=== PATIENT | female | born 1995 | race Hispanic/Latino ===

== ENCOUNTER 2021-10-10 22:00 | Outpatient (CLI) | payer OTHER ==
[~2021-10-10] VITALS: Ht 170.2 cm; Wt 84.0 kg
[2021-10-10 22:12] VITALS: BP 109/69
[2021-10-10] MEDS ORDERED: CALC500C16 PO (22:16)
[2021-10-10] MEDS ORDERED: PRENTAB9 PO (22:16)
== END 2021-10-10 22:57 | disposition home or self-care (01) ==
LOC: M LDO 22:00
PROVIDERS: ATTEND Obstetrics & Gynecology
DX: O47.1 False labor at or after 37 completed weeks of gestation (principal); Z3A.37 37 weeks gestation of pregnancy
CPT/HCPCS: 59025; G0463

== ENCOUNTER 2021-11-03 16:15 | Inpatient (IN) | payer OTHER ==
[2021-11-03] VITALS (8 sets, daily range): BP systolic 98–135; BP diastolic 56–72
[~2021-11-03 16:15] MED LIST: CALC500C16 PO; PRENTAB9 PO
[2021-11-03] MEDS ORDERED: OXYTOCIN DRIP 30 UNITS in IV 1 EA IV SCH (17:35)
[2021-11-03] MEDS ORDERED: OXYTOCIN DRIP 30 UNITS in IV 1 EA IV PRN ×4 (17:35)
[2021-11-03] MEDS ORDERED: LIDOCAINE 1% MDV 20ML VIAL INFIL PRN (17:35)
[2021-11-03] MEDS ORDERED: METHYLERGONOVINE MALEATE 0.2 MG/ML VIAL (J2210) IM PRN (17:35)
[2021-11-03] MEDS ORDERED: TRANEXAMIC ACID INJection 1,000 MG in NS 100 ML IV PRN (17:35)
[2021-11-03 17:56] LABS: HEMATOCRIT 34.7 % (36.0-47.0); HEMOGLOBIN 11.4 g/dl (12.0-15.5); MEAN CORPUSCULAR HGB CONC 32.9 g/dl (32.0-36.5); MEAN CORPUSCULAR VOLUME 88.3 fl (80.0-96.0); PLATELET COUNT, AUTOMATED 285 10^3/uL (150-450); RED BLOOD COUNT 3.93 10^6/uL (4.00-5.40)
[2021-11-03] MEDS: LR 1,000 ML IV SCH ×2 (19:44→22:09)
[2021-11-04] VITALS (23 sets, daily range): BP systolic 100–129; BP diastolic 54–70
[2021-11-04] MEDS ORDERED: FENTANYL 2MCG/ML ROPIVACAINE 0.2% IN 0.9% NACL 100ML IVBAG As Ordered ONE (00:40)
[2021-11-04] MEDS ORDERED: LR 500 ML IV PRN (00:55)
[2021-11-04] MEDS ORDERED: EPIDURAL/PCA KEYS XX PRN (00:55)
[2021-11-04] MEDS ORDERED: ONDANSETRON 4MG 2ML VIAL IV PRN (00:55)
[2021-11-04] MEDS ORDERED: NALOXONE INJ 0.4MG/1ML VIAL (J2310 PER 1MG) IV PRN (00:55)
[2021-11-04] MEDS ORDERED: diphenhydrAMINE 50MG/ML VIAL (J1200) IV PRN (00:55)
[2021-11-04] MEDS: FENTANYL/ROPIVACAINE/NACL BAG 100 ML EPIDURAL SCH ×2 (01:20→09:52)
[2021-11-04] MEDS: ePHEDrine SULFATE 25 MG/5 ML(5MG/ML) SYRINGE IVP PRN ×3 (02:32→04:34)
[2021-11-04] MEDS: LR 1,000 ML IV SCH ×2 (05:57→11:59)
[2021-11-04] MEDS ORDERED: OXYTOCIN INJ 10 UNITS/ML VIAL (J2590) As Ordered ONE (12:19)
[2021-11-04] MEDS ORDERED: ANUSOL HC CREAM 30GM TOP PRN (14:05)
[2021-11-04] MEDS ORDERED: OXYTOCIN INJ 10 UNITS/ML VIAL (J2590) IV ONE ×2 (14:05)
[2021-11-04] MEDS ORDERED: LR 1,000 ML IV SCH (14:05)
[2021-11-04] MEDS ORDERED: METHYLERGONOVINE MALEATE 0.2 MG TAB PO PRN (14:05)
[2021-11-04] MEDS ORDERED: MOM 30ML SUSPENSION UDC PO PRN (14:05)
[2021-11-04] MEDS ORDERED: ACETAMINOPHEN TAB 650MG DOSE (2X325MG) PO PRN (14:05)
[2021-11-04] MEDS ORDERED: DIBUCAINE 1% OINTMENT 30GM TOP PRN (14:05)
[2021-11-04] MEDS ORDERED: OXYTOCIN DRIP 30 UNITS in IV 1 EA IV SCH ×4 (14:05)
[2021-11-04] MEDS ORDERED: RHOGAM 300 MCG (1500 IU) INJ (J2790) IM SCH (14:05)
[2021-11-04] MEDS ORDERED: METHYLERGONOVINE MALEATE 0.2 MG/ML VIAL (J2210) IM PRN (14:05)
[2021-11-04 14:15] LABS: CORD GAS ABE V -6.2; CORD GAS HCO3 V 20.1 MEQ/L; CORD GAS O2 SAT V 43.3 %; CORD GAS PCO2 V 42.5 mmHg; CORD GAS PH V 7.293 UNITS; CORD GAS PO2 V 20.4 mmHg; CORD GAS SBC V 18.2 MEQ/L; CORD GAS TCO2 V 21.4 MEQ/L
[2021-11-04 14:17] LABS: CORD GAS ABE A -8.2; CORD GAS PCO2 A 50.7 mmHg; CORD GAS PH A 7.213 UNITS; CORD GAS TCO2 A 21.5 MEQ/L
[2021-11-04 14:18] LABS: CORD GAS PO2 A < 10.0 mmHg
[2021-11-04] MEDS ORDERED: SLF 3 ML SYR IV PRN (15:30)
[2021-11-04] MEDS: ACETAMINOPHEN 500 MG TAB PO PRN (16:59)
[2021-11-04] MEDS: DOCUSATE SODIUM 100MG CAPSULE PO PRN (16:59)
[2021-11-04] MEDS: IBUPROFEN 600MG TAB PO PRN (22:00)
[2021-11-04] MEDS ORDERED: SLF 3 ML SYR IV SCH (22:00)
[2021-11-05 06:00] VITALS: BP 116/66
[2021-11-05] MEDS: PRENATAL VITAMINS CHEWABLE TABLET PO SCH ×2 (07:56→09:00)
[2021-11-05] MEDS: IBUPROFEN 600MG TAB PO PRN (07:56)
[2021-11-05 10:02] LABS: HEMATOCRIT 32.7 % (36.0-47.0); HEMOGLOBIN 10.6 g/dl (12.0-15.5); MEAN CORPUSCULAR HGB CONC 32.4 g/dl (32.0-36.5); MEAN CORPUSCULAR VOLUME 89.6 fl (80.0-96.0); PLATELET COUNT, AUTOMATED 252 10^3/uL (150-450); RED BLOOD COUNT 3.65 10^6/uL (4.00-5.40)
[2021-11-05 18:00] VITALS: BP 107/57
[2021-11-05] MEDS: DOCUSATE SODIUM 100MG CAPSULE PO PRN (20:04)
[2021-11-05] MEDS: ACETAMINOPHEN 500 MG TAB PO PRN (20:05)
[2021-11-06 06:00] VITALS: BP 115/56
[2021-11-06] MEDS ORDERED: ACET-683 PO (06:24)
[2021-11-06] MEDS ORDERED: COLA100C5 PO (06:24)
[2021-11-06] MEDS ORDERED: IBUP-1022 PO (06:24)
[2021-11-06] MEDS: PRENATAL VITAMINS CHEWABLE TABLET PO SCH (08:18)
[2021-11-06] MEDS ORDERED: MEASLES,MUMPS,RUBELLA VACCINE INJ (MMR-II) (90707) SC.IMMUN ONE (09:00)
== END 2021-11-06 15:30 | disposition home or self-care (01) | DRG 807 ==
LOC: M LDO 16:15 → M LDI 17:26 → M OBS 11-04 16:05
PROVIDERS: ADMIT Obstetrics & Gynecology; ATTEND Obstetrics & Gynecology
PROC: 10E0XZZ Delivery of Products of Conception, External Approach (ICD-10-PCS; principal; 2021-11-04)
DX: O42.02 Full-term premature rupture of membranes, onset of labor within 24 hours of rupture (principal); Z37.0 Single live birth; Z3A.40 40 weeks gestation of pregnancy

== ENCOUNTER → 2022-12-08 | Outpatient (CLI) | payer OTHER ==
[~2022-12-08] MED LIST changes: +ACET-683 PO; +COLA100C5 PO; +IBUP-1022 PO
== END ==
LOC: M WHC 13:17
PROVIDERS: ATTEND Advanced Practice Midwife
DX: Z36.89 Encounter for other specified antenatal screening (principal)

== ENCOUNTER 2023-03-07 23:16 | Inpatient (IN) | payer OTHER ==
[~2023-03-07] VITALS: Ht 170.2 cm; Wt 86.7 kg
[2023-03-07] MEDS ORDERED: HOME MED LIST COMPLETE! XX SCH (23:40)
[2023-03-08] VITALS (33 sets, daily range): BP systolic 92–151; BP diastolic 50–79
[2023-03-08] MEDS ORDERED: OXYTOCIN DRIP 30 UNITS in IV 1 EA IV PRN ×4 (00:35)
[2023-03-08] MEDS ORDERED: METHYLERGONOVINE MALEATE 0.2MG/ML 1ML VIAL IM PRN (00:35)
[2023-03-08] MEDS ORDERED: LIDOCAINE 1% MDV 20ML VIAL INFIL PRN (00:35)
[2023-03-08] MEDS ORDERED: TRANEXAMIC ACID INJection 1,000 MG in NS 100 ML IV PRN (00:35)
[2023-03-08] MEDS ORDERED: CARBOPROST TROMETHAMINE 250 MCG/ML AMP IM PRN (00:35)
[2023-03-08 00:58] LABS: HEMATOCRIT 36.5 % (36.0-47.0); HEMOGLOBIN 12.2 g/dl (12.0-15.5); MEAN CORPUSCULAR HEMOGLOBIN 29.4 pg (27.0-33.0); MEAN CORPUSCULAR HGB CONC 33.4 g/dl (32.0-36.5); PLATELET COUNT, AUTOMATED 269 10^3/uL (150-450); RED BLOOD COUNT 4.15 10^6/uL (4.00-5.40); WHITE BLOOD COUNT 11.3 10^3/uL (4.0-10.0)
[2023-03-08] MEDS: LR 1,000 ML IV SCH ×3 (07:10→11:28)
[2023-03-08] MEDS ORDERED: OXYTOCIN DRIP 30 UNITS in IV 1 EA IV SCH ×2 (08:55→15:35)
[2023-03-08] MEDS ORDERED: diphenhydrAMINE 50MG/ML VIAL IV PRN (11:10)
[2023-03-08] MEDS ORDERED: NALOXONE INJ 0.4MG/1ML VIAL IV PRN (11:10)
[2023-03-08] MEDS ORDERED: EPIDURAL/PCA KEYS XX PRN (11:10)
[2023-03-08] MEDS ORDERED: ePHEDrine SULFATE 25 MG/5 ML(5MG/ML) SYRINGE IVP PRN (11:10)
[2023-03-08] MEDS ORDERED: ONDANSETRON 4MG 2ML VIAL IV PRN (11:10)
[2023-03-08] MEDS ORDERED: LR 500 ML IV PRN (11:10)
[2023-03-08] MEDS ORDERED: FENTANYL 2MCG/ML ROPIVACAINE 0.2% IN 0.9% NACL 100ML IVBAG As Ordered ONE (11:15)
[2023-03-08] MEDS: FENTANYL/ROPIVACAINE/NACL BAG 100 ML EPIDURAL SCH ×2 (11:56→21:10)
[2023-03-08] MEDS ORDERED: DIBUCAINE 1% OINTMENT 30GM TOP PRN (15:35)
[2023-03-08] MEDS ORDERED: METHYLERGONOVINE MALEATE 0.2 MG TAB PO PRN (15:35)
[2023-03-08] MEDS ORDERED: IBUPROFEN 600MG TAB PO PRN (15:35)
[2023-03-08] MEDS ORDERED: DOCUSATE SODIUM 100MG CAPSULE PO PRN (15:35)
[2023-03-08] MEDS ORDERED: IBUPROFEN 800 MG TAB PO PRN (15:35)
[2023-03-08] MEDS ORDERED: ACETAMINOPHEN 500 MG TAB PO PRN (15:35)
[2023-03-08] MEDS ORDERED: ACETAMINOPHEN TAB 650MG DOSE (2X325MG) PO PRN (15:35)
[2023-03-09 06:00] VITALS: BP 126/71; O2SAT 97
[2023-03-09] MEDS ORDERED: PRENATAL VITAMINS CHEWABLE TABLET PO SCH (09:00)
[2023-03-10] MEDS ORDERED: MEASLES,MUMPS,RUBELLA VACCINE INJ (MMR-II) SC.IMMUN ONE (09:00)
== END 2023-03-09 17:30 | disposition home or self-care (01) | DRG 807 ==
LOC: M LDO 23:16 → M LDI 03-08 00:38 → M OBS 03-08 18:39
PROVIDERS: ADMIT Obstetrics & Gynecology; ATTEND Advanced Practice Midwife
PROC: 10E0XZZ Delivery of Products of Conception, External Approach (ICD-10-PCS; principal; 2023-03-08)
DX: O42.02 Full-term premature rupture of membranes, onset of labor within 24 hours of rupture (principal); Z37.0 Single live birth; Z3A.39 39 weeks gestation of pregnancy

== ENCOUNTER 2023-08-24 15:11 | Emergency (ER) | payer OTHER ==
[~2023-08-24] VITALS: Ht 170.2 cm; Wt 70.5 kg
[2023-08-24 15:55] LABS: HEMATOCRIT 38.5 % (36.0-47.0); HEMOGLOBIN 13.2 g/dl (12.0-15.5); MEAN CORPUSCULAR HEMOGLOBIN 30.3 pg (27.0-33.0); MEAN CORPUSCULAR HGB CONC 34.3 g/dl (32.0-36.5); MEAN CORPUSCULAR VOLUME 88.5 fl (80.0-96.0); PLATELET COUNT, AUTOMATED 280 10^3/uL (150-450); RED BLOOD COUNT 4.35 10^6/uL (4.00-5.40); WHITE BLOOD COUNT 9.2 10^3/uL (4.0-10.0)
[2023-08-24] MEDS: MORPHINE 4 MG/ML 1ML VIAL IV ONE (16:06)
[2023-08-24 16:24] LABS: BLOOD UREA NITROGEN 20 MG/DL (9-23); CALCIUM LEVEL 8.1 MG/DL (8.5-10.1); CARBON DIOXIDE LEVEL 24 MMOL/L (20-31); CHLORIDE LEVEL 106 MMOL/L (98-107); CREATININE FOR GFR 0.59 MG/DL (0.55-1.30); GLOMERULAR FILTRATION RATE > 60.0 (>60); GLUCOSE, FASTING 101 MG/DL (60-100); HCG, SERUM QUALITATIVE NEGATIVE (NEGATIVE); SODIUM LEVEL 137 MMOL/L (136-145)
[2023-08-24] MEDS: diazePAM 10MG/2ML SYRINGE IV ONE (18:30)
[2023-08-24] MEDS: MORPHINE 2 MG/ML 1ML VIAL IV ONE (18:31)
[2023-08-24 19:35] VITALS: BP 131/73; TEMP 98.8; O2SAT 97
== END 2023-08-24 19:59 | disposition home or self-care (01) ==
LOC: M ED 15:11
DX: S53.105A Unspecified dislocation of left ulnohumeral joint, initial encounter (principal); W01.0XXA Fall on same level from slipping, tripping and stumbling without subsequent striking against object, initial encounter; Y92.009 Unspecified place in unspecified non-institutional (private) residence as the place of occurrence of the external cause; Y93.9 Activity, unspecified; Y99.9 Unspecified external cause status; Z79.899 Other long term (current) drug therapy
CPT/HCPCS: 24600; 73060; 73070; 73080; 73090; 80048; 84703; 85027; 96374; 96375; 96376; 99284; J3360